=== PATIENT | female | born 1985 | race Caucasian/White ===

== ENCOUNTER 2018-11-09 09:53 | Emergency (ER) | payer OTHER ==
[~2018-11-09] VITALS: Ht 172.7 cm; Wt 87.5 kg
[~2018-11-09 09:53] MED LIST: ACET-1600 PO; ASPI1TAB58 PO; IBUP-1223 PO; OMEP-110 PO; OXYC-302 PO; PREN1TAB60 PO; [UNRECOGNIZED DRUG - OTHER] PO
[2018-11-09 10:51] LABS: CULTURE INDICATED? YES; MICROSCOPIC INDICATED
--- NOTE | 2018-11-09 11:00 | NUR ---
no answer in lobby. Pt in [place]
--- NOTE | 2018-11-09 11:24 | NUR ---
PT BACK IN ROOM FROM [place], LAB DRAWN. PT PRESENTING FOR LEFT PELVIC PAIN AND CRAMPING WITH NAUSEA SINCE YESTERDAY. PT STATES 8 WKS . NO URINARY SYMPTOMS, NO DISCHARGE OR BLEEDING REPORTED. CONNECTED TO MONITORING, VSS. CALL LIGHT Amorelie REACH. AWAITING FURTHER ORDERS AND TEST RESULTS AT THIS TIME
[2018-11-09 11:26] VITALS: BP 105/66
[2018-11-09 11:28] LABS: BASOPHILS # (AUTO) 0.03 x10^3/uL (0-0.1); BASOPHILS % (AUTO) 0 % (0-1); EOSINOPHILS # (AUTO) 0.06 x10^3/uL (0-0.4); EOSINOPHILS % (AUTO) 1 % (1-7); LYMPHOCYTES # (AUTO) 2.15 x10^3/uL (1-3.4); LYMPHOCYTES % (AUTO) 25 % (22-44); MD NO; MEAN CORPUSCULAR HGB CONC 32.9 g/dL (32.4-35.8); MEAN CORPUSCULAR VOLUME 91.1 fL (80-100); MEAN PLATELET VOLUME 8.8 fL (7.4-10.4); MONOCYTES # (AUTO) 0.88 x10^3/uL (0.2-0.8); MONOCYTES % (AUTO) 10 % (2-9); NEUTROPHILS # (AUTO) 5.51 x10^3/uL (1.8-6.8); NEUTROPHILS % (AUTO) 64 % (42-75); PLATELET COUNT 308 x10^3/uL (130-400); RED BLOOD COUNT 4.58 x10^6/uL (3.82-5.3)
[2018-11-09 11:40] LABS: ALANINE AMINOTRANSFERASE 36 U/L (12-78); ALBUMIN 3.3 g/dL (3.4-5.0); ANION GAP 6 mmol/L (5-15); CALCIUM 8.8 mg/dL (8.5-10.1); CHLORIDE 108 mmol/L (98-107); CREATININE 0.54 mg/dL (0.55-1.02)
--- NOTE | 2018-11-09 11:46 | NUR ---
MD TO BEDSIDE FOR ASSESSMENT
--- NOTE | 2018-11-09 11:51 | NUR ---
Patient/Caregiver given discharge instructions and they have confirmed that they understand the instructions. Patient ambulatory with steady gait.
[2018-11-09 11:57] LABS: ALKALINE PHOSPHATASE 63 U/L (45-117); BILIRUBIN,TOTAL 0.3 mg/dL (0.2-1.0); TOTAL PROTEIN 7.7 g/dL (6.4-8.2)
== END 2018-11-09 12:07 | disposition home or self-care (01) ==
LOC: ED 11:42
DX: O23.11 Infections of bladder in pregnancy, first trimester (principal); R10.2 Pelvic and perineal pain; Z3A.09 9 weeks gestation of pregnancy
CPT/HCPCS: 36415; 76801; 80053; 81001; 84702; 85025; 86901; 87086; 99284